=== PATIENT | male | born 1995 | race Caucasian/White ===

== ENCOUNTER 2018-12-06 18:35 | Emergency (ER) | payer OTHER | END 2018-12-06 21:35 | disposition home or self-care (01) | LOC: FTE 18:35 | DX: S69.91XA Unspecified injury of right wrist, hand and finger(s), initial encounter (principal); L03.012 Cellulitis of left finger; X58.XXXA Exposure to other specified factors, initial encounter; Y92.89 Other specified places as the place of occurrence of the external cause | CPT/HCPCS: 10060; 73140; 99283-25 ==